=== PATIENT | female | born 1930 | race Caucasian/White ===

== ENCOUNTER 2016-12-29 09:00 | Inpatient (IN) | payer MEDICARE, OTHER ==
--- NOTE | 2017-04-07 01:04 | HP ---
HISTORY AND PHYSICAL: DATE OF SURGERY/ADMISSION: 04/13/17 DATE OF OFFICE VISIT: 04/02/17 ATTENDING SURGEON: Dr. Cherie Ybarra * (DICTATED BY CHRISTIAN DIETZ) PROCEDURE: Right total hip arthroplasty. CHIEF COMPLAINT: Right hip pain. HISTORY OF PRESENT ILLNESS: The patient is a very pleasant 86-year-old female with a longstanding history of right hip pain. She has tried conservative treatments such as medications, injections, and activity; however, has not had any benefit from these. She is currently using a cane for ambulation and has had a severe decline in her ADLs. She has elected to undergo a right total hip arthroplasty by Dr. Cherie Ybarra on 04/13/17. PAST MEDICAL HISTORY: 1. Hypertension. 2. Anxiety. 3. Depression. 4. 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 5. History of colon cancer 15 years ago, uterine cancer, status post ANDREY-BSO 15 years ago, and melanoma greater than 30 years ago. 6. Elevated cholesterol. PAST SURGICAL HISTORY: 1. Colon resection. 2. ANDREY-BSO. 3. Melanoma resection. MEDICATIONS: 1. Verapamil 250 mg 1 tablet by mouth in the morning. 2. Lorazepam 0.25 mg 1 tablet by mouth up to 3 times a day as needed for anxiety. 3. Zolpidem 10 mg p.o. daily. 4. Simvastatin 20 mg 1 tablet by mouth daily. 5. Fluoxetine HCl 20 mg 1 tablet by mouth daily. 6. Omeprazole 20 mg 1 tablet daily. ALLERGIES: 1. PENICILLIN, which causes a rash and hypertension. 2. CEPHALOSPORIN causing a rash. FAMILY MEDICAL HISTORY: Mother had low blood pressure, of lung disease. Father of emphysema. SOCIAL HISTORY: The patient lives alone with her dog, her son lives next door. She is , nonsmoker. REVIEW OF SYSTEMS: General: Negative for fevers, chills or night sweats. No history of weight gain or loss. No difficulty with anesthesia. HEENT: Negative for headaches, lightheadedness, dizziness, or syncopal episodes. Integumentary: Negative for abrasions, lesions, open wounds or sores. No difficulty with wound healing. Cardiothoracic: Negative for palpitations, murmurs or edema. Positive for hypertension. Pulmonary: Negative for shortness of breath, chronic cough, COPD or asthma. GI: Negative for nausea, vomiting, constipation or diarrhea. Positive for GERD. : Negative for nocturia, urinary frequency or urgency. No history of UTIs or kidney problems. Musculoskeletal: Positive for right hip pain. Positive for intermittent lower back pain. Neuro: Negative for paresthesias, numbness. No history of stroke or epilepsy or seizure. Endocrine: Negative for diabetes. Negative for thyroid disease. Hematologic: Negative for easy bruising, anemia. No history of DVTs or PEs. Infectious Disease: No history of MRSA, hepatitis C or HIV. Positive for yeast infection in groin creases. PHYSICAL EXAMINATION GENERAL: Well appearing, in no acute distress, alert and oriented. VITAL SIGNS: Height 60 inches, weight 133 pounds, blood pressure 108/72, respirations 20, temperature 97.2, BMI 26.0. HEENT: Normocephalic, atraumatic, EOMI. PULMONARY: Lungs are clear to auscultation bilaterally. No crackles, rhonchi or wheezes. CARDIAC: Regular rate and rhythm. No murmurs, gallops or rubs. No edema of bilateral lower extremities. ABDOMEN: Soft, nontender, nondistended. Negative CVA tenderness bilaterally. NEUROLOGIC: Alert and oriented x3. Cranial nerves are grossly intact. Sensation intact to light touch, bilateral lower extremities. MUSCULOSKELETAL: Antalgic gait favoring the right side, having to use a cane for mobility. Positive pain with internal log roll and external log roll. Posterior tibial pulses 2+ bilaterally. Negative John's sign bilaterally. Examination of groin creases show erythematous rash with multiple satellite lesions seen extending on the abdomen and upper thigh, rash appears in bilateral groin folds. RADIOGRAPHS: The patient will need to undergo x-rays of the right hip prior to surgery as she was unable to complete them today due to having to go to [facility] and having radiology behind schedule. IMPRESSION: The patient is a very pleasant 86-year-old female who presents today for history and physical examination prior to undergoing a right hip replacement. Due to the patient's recent skin infection, she is required to come back to see Dr. Ybarra prior to approval for surgery. She will continue with [facility] today and complete her blood work and chest x-ray as well as urinalysis. The patient was in agreement with this plan. She has been cleared by her primary care doctor; however, does have some questions with regards to her multiple caries; however, has not had any recent fevers, chills or dental pain, and does not have the income needed for dental work. We will follow back with her in approximately 1 week to evaluate her wounds prior to surgery. CHRISTIAN DIETZ [id number]/[facility] #: [id number] SAGAR
[2017-04-12] MEDS ORDERED: Buffered Lidocaine 0.9% SYRIN* 5 ML/SYR SYRINGE INTRADERM ONE (11:00)
[2017-04-13] MEDS ORDERED: Famotidine IV* 10 MG/ML 2 ML (20 mg) IV ONE (06:00)
[2017-04-13] MEDS ORDERED: Dexamethasone IV* 4 MG/ML 1 ML (4 MG) IV SLOW PU ONE (06:00)
[2017-04-13] MEDS ORDERED: Buffered Lidocaine 0.9% SYRIN* 5 ML/SYR SYRINGE ONE (06:47)
[2017-04-13] MEDS ORDERED: Famotidine IV* 10 MG/ML 2 ML (20 mg) ONE (06:47)
[2017-04-13] MEDS ORDERED: Dexamethasone IV* 4 MG/ML 1 ML (4 MG) ONE (06:47)
[2017-04-13] MEDS ORDERED: Clindamycin 900 MG IVPREMIX(* 900 MG/50 ML SDV IV ONE (06:47)
[2017-04-13] MEDS ORDERED: KETAMINE HCL* 50 MG/ML 10 ML VIAL ONE (07:51)
[2017-04-13] MEDS ORDERED: Midazolam* 1 MG/ML 5 ML VIAL (5 MG) ONE (07:52)
[2017-04-13] MEDS ORDERED: Morphine PF AMP (0.5MG/ML)* 5 MG/10 ML AMP ONE (07:52)
[2017-04-13] MEDS ORDERED: Bupivacaine 0.5% SDV PF* 30 ML VIAL ONE (07:52)
[2017-04-13] MEDS ORDERED: Propofol* 10 MG/ML 20 ML BTL IV PUSH ONE ×2 (07:52→10:19)
[2017-04-13] MEDS ORDERED: Phenylephrine INJ* 10 MG/ML 1 ML VIAL (10 MG) ONE (07:52)
[2017-04-13] MEDS ORDERED: Ondansetron INJ* 2 MG/ML VIAL ONE (07:52)
[2017-04-13] MEDS ORDERED: EPHEDrine (Pressors)* 50 MG/ML VIAL ONE (09:25)
[2017-04-13] MEDS ORDERED: Glycopyrrolate IV* 0.2 MG/ML 1 ML VIAL ONE (09:26)
[2017-04-13] MEDS ORDERED: Ondansetron INJ* 2 MG/ML VIAL IV PRN (09:35)
[2017-04-13] MEDS ORDERED: Naloxone* 0.4 MG/ML 1 ML VIAL IV PRN (09:35)
[2017-04-13] MEDS ORDERED: DiMENhydriNATE IV* 50 MG/ML VIAL IV PUSH PRN (09:35)
[2017-04-13] MEDS ORDERED: Nalbuphine* 20 MG/ML 1 ML VIAL IV PRN ×2 (09:35)
[2017-04-13] MEDS ORDERED: Magnesium Hydroxide LIQ* 30 ML UDC PO PRN (09:47)
[2017-04-13] MEDS ORDERED: diPHENhydraMINE IV* 50 MG/ML 1 ml VIAL (BENADRYL) IV PRN (09:47)
[2017-04-13] MEDS ORDERED: Bisacodyl SUPP* 10 MG SUPP PR PRN (09:47)
[2017-04-13] MEDS ORDERED: Polyethylene Glycol 3350* 17 GM PACKET PO PRN (09:47)
[2017-04-13] MEDS ORDERED: Acetaminophen TAB* 325 MG PO PRN (09:47)
[2017-04-13] MEDS ORDERED: Ropivacaine* 300 MG in NS 0.9% 250 ML* 240 ML EPIDURAL SCH (10:00)
[2017-04-13] MEDS ORDERED: Lidocaine 1%* 5 ML VIAL ONE (11:21)
--- NOTE | 2017-04-13 11:34 | RAD ---
HISTORY: Right hip arthroplasty COMPARISONS: March 14, 2016 VIEWS: 1, portable intraoperative view of the right hip at 9:56 AM FINDINGS: Single portable intraoperative view of the right hip arthroplasty demonstrate a right hip arthroplasty with a temporary femoral sizing component IMPRESSION: PORTABLE VIEW OF THE RIGHT HIP DURING RIGHT HIP ARTHROPLASTY
[2017-04-13] MEDS ORDERED: oxyCODONE/Acetamin 5/325 MG* TAB ONE (12:37)
[2017-04-13] MEDS: oxyCODONE/Acetamin 5/325 MG* TAB PO PRN ×2 (12:40→21:23)
--- NOTE | 2017-04-13 12:57 | RAD ---
HISTORY: Right hip replacement COMPARISONS: April 13, 2016 VIEWS: 3, Frontal view of the pelvis with frontal and crosstable lateral views of the right hip FINDINGS: BONE DENSITY: There is diffuse osteopenia. BONES: The patient is status post right hip arthroplasty. There is no hardware failure or osteolysis. JOINTS: The patient is status post right hip arthroplasty. There is advanced osteoarthritis of the left hip ALIGNMENT: There is no dislocation. SOFT TISSUES: There is post surgical change to the soft tissue OTHER FINDINGS: None. IMPRESSION: STATUS POST RIGHT HIP ARTHROPLASTY
[2017-04-13] MEDS: CMC:Simvastatin TAB(NF) 10 MG TAB PO SCH (16:50)
[2017-04-13] MEDS: Clindamycin 600 MG IVPREMIX(* 600 MG/50 ML SDV IV SCH (16:51)
[2017-04-13] MEDS ORDERED: Warfarin TAB(*) 6 MG PO ONE (17:00)
[2017-04-13] MEDS: Nystatin TOP POWDER* 15 GM BTL TOPICAL SCH ×2 (17:43→21:23)
[2017-04-13] MEDS: Docusate CAP* 100 MG PO SCH (21:23)
[2017-04-13] MEDS: Nystatin CREAM* 15 GM TUBE TOPICAL SCH (21:23)
[2017-04-13] MEDS: ALPRAZolam TAB* 0.25 MG PO SCH (21:28)
--- NOTE | 2017-04-13 21:30 | CONS ---
CC: Dr. Magalie Escobar; Dr. Ybarra * MEDICAL CONSULTATION REPORT: DATE OF CONSULTATION: PRIMARY CARE PROVIDER: Dr. Magalie Escobar. REQUESTING PROVIDER: Dr. Cherie Ybarra. CONSULTING PROVIDER: CHRISTIAN Alexander SUPERVISING PHYSICIAN: Dr. Dhaval Lane. (DICTATED BY CHRISTIAN ALEXANDER) REASON FOR CONSULT: Status post right total hip arthroplasty, request for medical comanagement. HISTORY OF PRESENT ILLNESS: This is an 86-year-old female with history of hypertension, hyperlipidemia, depression, and anxiety, and a remote history of colorectal cancer, status post colectomy, who underwent an elective right total hip arthroplasty with Dr. Ybarra earlier today. The hospitalist group has been asked to consult for medical comanagement. The patient was seen by her primary care provider on March 26 in preparation for this procedure. It was felt at that time that her chronic medical problems were stable. She was noted to have an inguinal yeast infection and treated with Diflucan and nystatin prior to surgery and the patient states that the rash has resolved to -1 small area of redness in the left inguinal area. The patient otherwise has no recent illness. She denies any recent complaints of chest pain or shortness of breath. Her exercise tolerance has been limited by her hip pain, but otherwise has no significant cardiopulmonary history. Postoperatively, the patient is doing quite well. She is alert and is not in any pain. She did have spinal anesthesia. She denies any nausea or vomiting and her appetite is beginning to return. She denies any chest pain, shortness of breath, or palpitations postoperatively. HOME MEDICATIONS: 1. Alprazolam 0.25 mg p.o. twice daily as needed for anxiety. 2. Prozac 20 mg p.o. daily. 3. Hydrocodone/acetaminophen 5/325 mg 1 tablet p.o. q.6 hours as needed for pain. 4. Omeprazole 20 mg p.o. daily. 5. Simvastatin 20 mg p.o. daily. 6. Verapamil 240 mg p.o. daily. 7. Ambien 10 mg p.o. at bedtime as needed for insomnia. PAST MEDICAL HISTORY: 1. Hypertension. 2. Anxiety and depression. 3. Hyperlipidemia. 4. History of colorectal cancer. PAST SURGICAL HISTORY: 1. Hysterectomy. 2. Colectomy. SOCIAL HISTORY: The patient is , lives alone, but her son and daughter- in- law lives next door. She has no significant smoking history and rare alcohol consumption. REVIEW OF SYSTEMS: As noted above in HPI, all other systems reviewed and considered negative. PHYSICAL EXAMINATION: General: This is a very pleasant, elderly female, who appears slightly younger than her stated age and is in no acute distress. Vitals: Temperature 98.1 degrees Fahrenheit, pulse 85 beats per minute, respiratory rate 20 per minute, oxygen saturation 92% on room air. Blood pressure 96/44 mmHg. HEENT: Head is normocephalic, atraumatic. Mucous membranes are pink and moist. The patient has poor dentition. Cardiovascular: Heart has a regular rate and rhythm without murmurs, rubs or gallops. Respiratory: Lungs are clear to auscultation without wheezes, crackles, or rhonchi. Abdomen: Soft and nontender to palpation. Extremities: No significant edema appreciated. Hip pillow in place. Psych: The patient is alert and appropriately oriented. LABORATORY DATA: Reviewed preoperative labs from 04/02/17 including a CBC, comprehensive metabolic panel and TSH. CBC is unremarkable with a preoperative hemoglobin of 12. Comprehensive metabolic panel is unremarkable with a preop creatinine of 0.77. TSH normal at 1.18. IMAGING: EKG shows a normal sinus rhythm. ASSESSMENT AND PLAN: This is a very pleasant 86-year-old female with hypertension, anxiety, depression, hyperlipidemia and remote history of colorectal cancer who underwent elective total hip arthroplasty with Dr. Ybarra earlier today. Hospitalist group consulted for medical comanagement. 1. Status post total hip arthroplasty - postoperative management including pain management, DVT prophylaxis, and discharge planning per Orthopedic Surgery. 2. Hypertension - the patient is slightly hypotensive postoperatively. We will plan to continue her verapamil tomorrow if blood pressure improves throughout the afternoon and evening hours. 3. Hypertension. Plan to continue her statin. 4. Anxiety and depression - this appears to be stable. We will plan to continue her home SSRI and p.r.n. benzo. 5. Inguinal yeast infection - she was recently treated with Diflucan and nystatin. There was one area of rash still present in the left inguinal area and we will plan to continue nystatin cream during her hospital stay. 6. Code status. The patient is full code. 7. Healthcare proxy is her son. 8. DVT prophylaxis per Orthopedic Surgery. DISPOSITION: Hospitalist group will follow along during this patient's postoperative stay. Discharge planning per Orthopedic Surgery. CHRISTIAN ALEXANDER [id number]/[facility] #: [id number] MTDD
[2017-04-14] MEDS: Clindamycin 600 MG IVPREMIX(* 600 MG/50 ML SDV IV SCH ×2 (00:23→07:30)
--- NOTE | 2017-04-14 04:51 | OP ---
OPERATIVE REPORT: DATE OF OPERATION: 04/13/17 DATE OF : 34 ATTENDING SURGEON: Cherie Ybarra MD VICE PRESIDENT UNDERWRITING: CHRISTIAN Cevallos Ms. Oleary did help throughout the procedure with preparation of the leg, wound retraction, manipul ation of the hip, and wound closure. ANESTHESIOLOGIST: Dr. Landin. ANESTHESIA: Spinal. PRE-OP DIAGNOSIS: Severe end-stage degenerative osteoarthritis of the right hip joint. POST-OP DIAGNOSIS: Severe end-stage degenerative osteoarthritis of the right hip joint. OPERATIVE PROCEDURE: Right total hip arthroplasty. HARDWARE USED: This is [place] uncemented total hip hardware. For the cup, a Trident hemispherical acetabular shell 52E, a single 20-mm and a single 16-mm cancellous bone screw, diameter 6.5. For t he stem, an Accolade TMZF size 3, 127- degree neck. For the insert, A Trident X3, 0-degree polyethy mariia liner with 40E. For the head, an LFIT V40 femoral head 40, -4. ESTIMATED BLOOD LOSS: 300 cc. SPECIMENS: Bone and acetabular reamings sent to Pathology. COMPLICATIONS: None. BRIEF HISTORY/INDICATIONS: Ms. Gleason is an 86-year-old female with severe right hip pain over the y ears. She failed conservative treatment with anti- inflammatories, pain medications, physical thera py, and use of a rolling walker. The patient has had increasingly severe pain making it difficult to ambulate without severe pain. Radiographs showed severe end-stage arthritis with bone-on- bone con tact. Due to this decreased quality of life, the patient elected to undergo right total hip arthrop lasty. Informed consent was obtained from the patient. She understood the risks of the surgery included bu t were not limited to bleeding, infection, damage to nearby structures, continued pain, need for fur ther surgery, intraoperative fracture, nerve palsy, hardware failure or loosening, dislocation, leg length discrepancy, stroke, heart attack, blood clot, and . She wished to proceed. INTRAOPERATIVE FINDINGS: Intraoperatively, the patient was noted to have full- thickness loss of ca rtilage along the acetabulum and femoral head. DESCRIPTION OF PROCEDURE: Ms. Gleason was identified in the preanesthesia unit. Her right lower extr emity was marked as the correct operative side. Informed consent was signed and placed in the chart . The patient was taken to the operating room and placed under spinal anesthesia. A Patton catheter was placed. The patient was placed in the left lateral decubitus position on the peg board and all bony prominences were well padded. Right lower extremity was prepped and draped in the usual steri le fashion. Appropriate perioperative antibiotics were given within 1 hour of incision. A 14-cm posterior hip incision was made with a 10-blade. Electrocautery was used to dissect down to the lateral fascial layer. New, 10-blade was used to make a lateral fascial incision. Charnley re tractor was placed and the posterior aspect of the hip joint was visualized. Piriformis and conjoin t tendons were elevated off the posterolateral femur using electrocautery. These were tagged with # 5 Ethibonds. Next, electrocautery was used to make a standard posterolateral capsular flap. This w as also tagged with #5 Ethibonds. The hip was carefully dislocated. Lesser troch to the center of the femoral head measured 48 mm. O scillating saw was used to make the appropriate femoral head cut. There was extensive loss of cartil age and a significant amount of osteophytes around the femoral neck. Femoral head was carefully rem dorita and sent to pathology. The femur was carefully retracted anteriorly. After appropriate placement of retractor, the acetabu lum was easily visualized. Long-handled knife was used to sharply remove any remaining labrum from the acetabular rim. The acetabulum was sequentially reamed to up to a size 51. A bleeding subchond ral bone bed was obtained. 51 trial was impacted into the acetabulum and noted to have good stabili ty as well as appropriate anteversion and abduction angle. 52E Trident hemispherical acetabular shell was chosen as the final implant. This was impacted into the acetabulum without difficulty. The cup was noted to be stable with appropriate anteversion and abduction angle. A single 16 mm and a single 20 mm 6.5 cancellous bone screw was placed in the supe roposterior quadrant for extra stability. Osteophytes were removed from around the anterior and inf erior acetabulum to avoid impingement with range of motion. Insert chosen was a Trident X3 0-degree polyethylene insert 40E. This was impacted into the acetabulum without difficulty. Stability of t he insert was checked and rechecked and noted to be stable. Attention was next turned to preparation of the femur. A canal finder was used to enter the proxima l femur. The proximal femur was sequentially broached up to a size 3. Size 3 broach had good fit a nd stability as well as appropriate anteversion. A trial 127-degree neck was placed. A trial 40, - 4 head was placed. Lesser troch to the center of the femoral head measured approximately 48 mm. The hip was reduced and taken through a range of motion. The hip was stable in all positions. Appropr iate soft tissue tension and leg length. The hip was carefully dislocated. All trials were carefully removed. Final implant chosen was an A ccolade TMZF size 3 with a 127-degree neck. A 40, -4 LFIT anatomic V40 femoral head was chosen. Th is was impacted on to the femoral neck without difficulty. The hip was reduced and taken through a range of motion. The hip was stable in all positions. The hip was copiously irrigated with sterile saline. The previously tagged capsule and tendons were reapproximated to the posterolateral femur through 2 trochanteric drill holes. Lateral fascial lay er was closed using interrupted #1 Vicryls. The rest of the incision was closed in a layered fashio n using 0 and 2-0 Vicryls. The skin was closed using running 3-0 Monocryl and Dermabond. Sterile A daptic, 4x4s, and paper tape were used to cover the incision. The patient's anesthesia was reversed without difficulty. She was taken to the PACU in stable condi tion. Intended weightbearing will be weightbearing as tolerated. Intended DVT prophylaxis will be Coumadin with a Lovenox bridge. [id number]/[facility] #: [id number]
[2017-04-14] MEDS: oxyCODONE/Acetamin 5/325 MG* TAB PO PRN ×3 (05:18→16:01)
[2017-04-14 05:46] LABS: Hematocrit 25 % (35-47); Hemoglobin 8.2 g/dl (12.0-16.0)
[2017-04-14] MEDS ORDERED: oxyCODONE/Acetamin 5/325 MG* TAB PO PRN (06:00)
[2017-04-14] MEDS ORDERED: Ondansetron TAB* 4 MG PO PRN (06:00)
[2017-04-14] MEDS ORDERED: oxyCODONE TAB* 5 MG TAB PO PRN (06:00)
[2017-04-14] MEDS ORDERED: Morphine INJ* 2 MG/ML 1 ML CARPUJECT IV PRN (06:00)
[2017-04-14 06:02] LABS: BUN/Creatinine Ratio 17.3 (8-20); Calcium 7.9 mg/dL (8.6-10.3); EGFR African American 94.7 (>60); EGFR Non-African American 73.6 (>60); Potassium 4.1 mmol/L (3.5-5.0)
[2017-04-14] MEDS: Omeprazole CAP* 20 MG PO SCH (07:53)
[2017-04-14] MEDS ORDERED: Sertraline* 25 MG TAB PO SCH (09:00)
[2017-04-14] MEDS ORDERED: Verapamil SR TAB* 240 MG PO SCH (09:00)
[2017-04-14] MEDS: Docusate CAP* 100 MG PO SCH ×2 (09:42→20:18)
[2017-04-14] MEDS: ALPRAZolam TAB* 0.25 MG PO SCH ×2 (09:42→20:19)
[2017-04-14] MEDS: Nystatin CREAM* 15 GM TUBE TOPICAL SCH ×2 (09:43→20:19)
[2017-04-14] MEDS: FLUoxetine CAP* 20 MG PO SCH (09:43)
[2017-04-14] MEDS: Sertraline* 25 MG TAB PO SCH (09:45)
[2017-04-14] MEDS: Nystatin TOP POWDER* 15 GM BTL TOPICAL SCH ×4 (09:45→20:28)
[2017-04-14] MEDS ORDERED: Enoxaparin(*) 30 MG/0.3 ML SYR SUBCUT SCH (10:00)
--- NOTE | 2017-04-14 10:35 | PN ---
Progress Note - Progress Note Date of Service: 04/14/17 SOAP: Subjective: []Patient seen OOB in chair. She feels well, mild "fogginess" from pain meds but denies lightheadedness. Denies SOB, CP. Objective: [] Vital Signs Temp 97.2 F 04/14/17 08:00 Pulse 65 04/14/17 08:00 Resp 18 04/14/17 09:42 BP 114/48 04/14/17 08:00 Pulse Ox 99 04/14/17 08:00 Intake & Output 04/13/17 04/14/17 04/14/17 18:59 06:59 18:59 Intake Total 2290 2475 350 Output Total 680 850 Balance 1610 1625 350 Intake: IV Fluids 2049 1674 CLINDAMYCIN 900 MG 50 LR 2000 5 Oral 240 800 350 Output: Patton 650 850 Residual 30 Patton 16 Fr 30 Other: # Bowel Movements 0 Estimated Blood Loss 100 Comment Right hip dressing is dry and intact calf NT and soft +DF/PF right ankle sensation intact distally Assessment: []s/p Right total hip arthroplasty POD #1 Plan: []PT/OT WBAT RLE Mild anemia, will monitor Coumadin with Lovenox bridge- 6 mg today Home with VNS 1-2 days Will be discharged on Clinda 300 mg po TID due to poor dentition
[2017-04-14 15:30] LABS: Hematocrit 25 % (35-47); Hemoglobin 8.3 g/dl (12.0-16.0)
[2017-04-14] MEDS: Clindamycin CAP* 150 MG PO SCH ×2 (15:33→20:18)
--- NOTE | 2017-04-14 15:46 | PN ---
Subjective Date of Service: 04/14/17 Interval History: Patient is POD #1 s/p MICHAEL. She reports feeling a little "woozy" today. Pain is adequately controlled. No n/v. No abd pain, n/v, but appetite is poor. Objective Active Medications: Acetaminophen (Tylenol Tab*) 650 mg PO Q4H PRN PRN Reason: PAIN OR TEMPERATURE Alprazolam (Xanax Tab*) 0.25 mg PO BID [facility] Last Admin: 04/14/17 09:42 Dose: 0.25 mg Bisacodyl (Dulcolax Supp*) 10 mg TN DAILY PRN PRN Reason: constipation Clindamycin HCl (Cleocin Cap*) 300 mg PO TID [facility] Last Admin: 04/14/17 15:33 Dose: 300 mg Diphenhydramine HCl (Benadryl Iv*) 12.5 mg IV Q6H PRN PRN Reason: PRURITIS Docusate Sodium (Colace Cap*) 100 mg PO BID [facility] Last Admin: 04/14/17 09:42 Dose: 100 mg Enoxaparin Sodium (Lovenox(*)) 30 mg SUBCUT Q24H [facility] Last Admin: 04/14/17 09:50 Dose: 30 mg Fluoxetine HCl (Prozac Cap*) 20 mg PO QAM [facility] Last Admin: 04/14/17 09:43 Dose: 20 mg Lactated Ringer's (Lactated Ringers 1000 Ml Bag*) 1,000 mls @ 2,000 mls/hr IV ONCE PRN PRN Reason: FOR SBP < 90 Lactated Ringer's (Lactated Ringers 1000 Ml Bag*) 1,000 mls @ 100 mls/hr IV PER RATE [facility] Lactulose (Lactulose*) 30 ml PO Q6H PRN PRN Reason: constipation Magnesium Hydroxide (Milk Of Magnesia Liq*) 30 ml PO Q6H PRN PRN Reason: constipation Morphine Sulfate (Morphine Inj (Syringe)*) 2 mg IV Q2H PRN PRN Reason: PAIN Nystatin (Nystatin Top Powder*) 1 applic TOPICAL TID [facility] Last Admin: 04/14/17 15:34 Dose: 1 applic Nystatin (Nystatin Cream*) 1 applic TOPICAL BID [facility] Last Admin: 04/14/17 09:43 Dose: 1 applic Omeprazole (Prilosec Cap*) 20 mg PO DAILY@0730 [facility] Last Admin: 04/14/17 07:53 Dose: 20 mg Ondansetron HCl (Zofran Tab*) 4 mg PO Q6H PRN PRN Reason: NAUSEA Oxycodone HCl (Roxycodone Tab*) 10 mg PO Q4H PRN PRN Reason: SEVERE PAIN Oxycodone/Acetaminophen (Percocet 5/325 Tab*) 1 tab PO Q3H PRN PRN Reason: PAIN - MODERATE Oxycodone/Acetaminophen (Percocet 5/325 Tab*) 2 tab PO Q3H PRN PRN Reason: PAIN - MODERATE Last Admin: 04/14/17 12:00 Dose: 2 tab Polyethylene Glycol/Electrolytes (Miralax*) 17 gm PO DAILY PRN PRN Reason: Constipation Sertraline HCl (Zoloft*) 25 mg PO QAM [facility] Last Admin: 04/14/17 09:45 Dose: 25 mg Simvastatin (Zocor(Nf)) 10 mg PO 1700 [facility] Last Admin: 04/13/17 16:50 Dose: 10 mg Warfarin Sodium (Coumadin Tab(*)) 6 mg PO ONCE@1700 ONE PRN Reason: Protocol Stop: 04/14/17 17:01 Vital Signs: Temp Pulse Resp BP Pulse Ox 97.2 F 65 14 114/48 99 04/14/17 08:00 04/14/17 08:00 04/14/17 12:00 04/14/17 08:00 04/14/17 08:00 Oxygen Devices in Use Now: None Appearance: Well appearing elderly female who appears younger than stated age in NAD Respiratory: Symmetrical Chest Expansion and Respiratory Effort, Clear to Auscultation Cardiovascular: NL Sounds; No Murmurs; No JVD, RRR Abdominal: NL Sounds; No Tenderness; No Distention Extremities: No Edema Neurological: Alert and Oriented x 3 Result Diagrams: 04/14/17 15:15 04/14/17 05:13 Assess/Plan/Problems-Billing Assessment: This is an 86 yo female with HTN, anxiety/depression, HLD and remote h/o CRC s/ p R MICHAEL with Dr Ybarra. Hospitalist group following for medical co-management. - Patient Problems (1) Status post total hip replacement, right Comment: POD #1 Post-op management per ortho (2) Blood loss anemia Comment: Hgb 8.2 g/dl with mild symptoms Repeat H&H ordered for this afternoon Would recommend transfusion for Hgb <8 if symptoms persist (3) Hypertension Comment: Mildly hypotensive with anemia Verapamil held this am, re-eval to resume tomorrow (4) Anxiety Comment: Stable, cont home meds (5) Hyperlipidemia Comment: Cont statin (6) Full code status (7) DVT prophylaxis Comment: Lovenox/Coumadin per ortho Status and Disposition: Dispo per ortho. Patient initially thought she could go home post-op, now interested in PMRU or MAI
[2017-04-14] MEDS ORDERED: Warfarin TAB(*) 6 MG PO ONE (17:00)
[2017-04-14] MEDS: CMC:Simvastatin TAB(NF) 10 MG TAB PO SCH (17:34)
[2017-04-15] MEDS: oxyCODONE/Acetamin 5/325 MG* TAB PO PRN ×3 (00:10→11:52)
[2017-04-15 06:05] LABS: Hematocrit 23 % (35-47); Hemoglobin 7.9 g/dl (12.0-16.0)
[2017-04-15] MEDS: Clindamycin CAP* 150 MG PO SCH (08:27)
[2017-04-15] MEDS: FLUoxetine CAP* 20 MG PO SCH (08:27)
[2017-04-15] MEDS: Omeprazole CAP* 20 MG PO SCH (08:27)
[2017-04-15] MEDS: Sertraline* 25 MG TAB PO SCH (08:27)
[2017-04-15] MEDS: Docusate CAP* 100 MG PO SCH (08:27)
[2017-04-15] MEDS: ALPRAZolam TAB* 0.25 MG PO SCH (08:28)
--- NOTE | 2017-04-15 09:53 | PN ---
Progress Note - Progress Note Date of Service: 04/15/17 SOAP: Subjective: []Patient seen OOB in chair, receiving a blood transfusion. Her hip pain is improving. [place] dizzy this am but currently feels fine sitting in her chair. Awaiting bed offer for rehab. Objective: [] Vital Signs Temp 98.9 F 04/15/17 07:17 Pulse 74 04/15/17 07:17 Resp 18 04/15/17 08:28 BP 100/43 04/15/17 07:17 Pulse Ox 97 04/15/17 07:17 Intake & Output 04/14/17 04/15/17 04/15/17 18:59 06:59 18:59 Intake Total 1828 1710 Output Total 500 1050 Balance 1328 660 Intake: IV Fluids 1178 1210 LR 1178 1210 Oral 650 500 Output: Patton 500 1050 Laboratory Results - last 24 hr 04/14/17 04/15/17 04/15/17 15:15 05:42 05:42 Hgb 8.3 L 7.9 L Hct 25 L 23 L INR (Anticoag Therapy) 3.52 H Blood Type Antibody Screen Crossmatch 04/15/17 05:42 Hgb Hct INR (Anticoag Therapy) Blood Type O Positive Antibody Screen Negative Crossmatch See Detail Right hip dressing changed this am by Dr. Ybarra calf NT and soft +DF/PF right ankle sensation and circulation intact distally Assessment: []s/p Right total hip arthroplasty POD #2 Acute post operative anemia secondary to blood loss Plan: []PT/OT this afternoon WBAT RLE Await bed offer for rehab, likely discharge Monday 04/16. hold Coumadin today
[2017-04-15] MEDS: Nystatin CREAM* 15 GM TUBE TOPICAL SCH (11:32)
[2017-04-15] MEDS: Nystatin TOP POWDER* 15 GM BTL TOPICAL SCH (11:33)
[2017-04-15 11:35] VITALS: BP 143/66
--- NOTE | 2017-04-15 13:51 | PN ---
Subjective Date of Service: 04/15/17 Interval History: Patient was discharged to [facility] earlier today. Reviewed am labs, vitals and nursing notes. Patient received 2U PRBCs as Hgb dropped to 7.9 g/dl this am. No additional concerns noted Objective Active Medications: Home Medications Medication Instructions Recorded Confirmed Type Alprazolam 0.25 mg PO BID 04/02/17 04/15/17 History FLUoxetine CAP* [PROzac CAP*] 20 mg PO QAM 04/02/17 04/15/17 History HYDROcodone/ACETAMIN 5-325 MG* 1 tab PO Q6H PRN 04/02/17 04/15/17 History [[place] 5-325 TAB*] Simvastatin TAB(NF) [Zocor(NF)] 20 mg PO 1700 04/02/17 04/15/17 History Verapamil HCl [Verelan] 240 mg PO QAM 04/02/17 04/15/17 History Omeprazole [Prilosec] 20 mg PO DAILY 04/13/17 04/15/17 History Zolpidem TAB* [Ambien TAB*] 10 mg PO BEDTIME PRN 04/13/17 04/15/17 History Vital Signs: Temp Pulse Resp BP Pulse Ox 97.2 F 83 18 143/66 94 04/15/17 11:26 04/15/17 11:26 04/15/17 11:52 04/15/17 11:26 04/15/17 11:26 Appearance: Exam not completed Result Diagrams: 04/15/17 05:42 04/14/17 05:13 Assess/Plan/Problems-Billing Assessment: This is an 86 yo female with HTN, anxiety/depression, HLD and remote h/o CRC s/ p R MICHAEL with Dr Ybarra. Hospitalist group following for medical co-management. - Patient Problems (1) Status post total hip replacement, right Comment: POD #2 Post-op management per ortho D/c today to [facility] (2) Blood loss anemia Comment: Hgb dropped to 7.9 g/dl Transfused 2U PRBCs (3) Hypertension Comment: Now normotensive and receiving blood May resume verapamil (4) Anxiety Comment: Stable, cont home meds (5) Hyperlipidemia Comment: Cont statin (6) Full code status (7) DVT prophylaxis Comment: Coumadin per ortho Status and Disposition: Discharge per ortho. Resume all home medications. Cont to monitor INR.
--- NOTE | 2017-04-16 22:43 | DS ---
DISCHARGE SUMMARY: DATE OF ADMISSION: 04/13/17 DATE OF DISCHARGE: 04/15/17 ATTENDING PHYSICIAN: Dr. Cherie Ybarra * (DICTATED BY CHRISTIAN OROZCO) ADMISSION DIAGNOSIS: Severe end-stage degenerative osteoarthritis of the right hip. DISCHARGE DIAGNOSES: 1. Severe end-stage degenerative osteoarthritis of the right hip. 2. Acute postoperative anemia secondary to blood loss. SURGERY PERFORMED: Right total hip arthroplasty. HOSPITAL COURSE: The patient is an 86-year-old female with severe right hip pain over the last several years. She failed conservative management with anti - inflammatories, pain medications, physical therapy, and use of a rolling walker. The patient elected to proceed with the aforementioned procedure and was taken to the operating room under the care of Dr. Cherie Ybarra on the date of 04/13/17. She tolerated the procedure well and left the operating room in stable condition. Postoperatively on day 2, her hemoglobin was 7.9 and hematocrit 23. It was felt that she would benefit from a transfusion and was given 2 units of packed red blood cells as she was symptomatic with these lab results. She was transfused without difficulty. She was found to be an acceptable candidate for the rehabilitation unit here at [facility] was transferred to the floor on the afternoon of 04/13/17 in stable condition. CONDITION ON DISCHARGE: Reveals a temperature of 98.3, pulse 85, respiratory rate 18, O2 sats 94% on room air, and blood pressure 144/61. Her right hip incision was healing without evidence of infection. Her calf was soft and nontender. Her neurovascular status is grossly intact. PLAN: Discharge to [facility] Rehabilitation 04/15/17. She will continue to bear weight as tolerated on the right lower extremity. It is recommended that she remain on oral clindamycin 300 mg t.i.d. for an additional 7 days due to her poor dentition. She will continue with Coumadin for DVT prophylaxis, dosed appropriately based on her INR which was elevated on the postoperative day #2 at 3.52; therefore, no Coumadin was given on the date of her discharge to the rehab unit. She is scheduled to follow up with Dr. Ybarra in roughly 10 to 14 days in the office. If there are any changes in her orthopedic condition, we will be contacted. CHRISTIAN OROZCO [id number]/[facility] #: [id number] SAGAR
== END 2017-04-15 13:01 | DRG 470 ==
LOC: AA 04-13 06:35 → SSU 04-13 13:24
PROVIDERS: ADMIT Orthopaedic Surgery Adult Reconstructive Orthopaedic Surgery; ATTEND Orthopaedic Surgery Adult Reconstructive Orthopaedic Surgery
PROC: 0SR904A Replacement of Right Hip Joint with Ceramic on Polyethylene Synthetic Substitute, Uncemented, Open Approach (ICD-10-PCS; 2017-04-13)
PROC: 30233N1 Transfusion of Nonautologous Red Blood Cells into Peripheral Vein, Percutaneous Approach (ICD-10-PCS; principal; 2017-04-15)
DX: M16.11 Unilateral primary osteoarthritis, right hip (principal); B37.89 Other sites of candidiasis; D62 Acute posthemorrhagic anemia; M17.11 Unilateral primary osteoarthritis, right knee; I10 Essential (primary) hypertension; E78.5 Hyperlipidemia, unspecified; F41.9 Anxiety disorder, unspecified; F32.9 Major depressive disorder, single episode, unspecified; Z85.038 Personal history of other malignant neoplasm of large intestine; Z85.42 Personal history of malignant neoplasm of other parts of uterus; Z88.0 Allergy status to penicillin; Z88.1 Allergy status to other antibiotic agents; Z83.6 Family history of other diseases of the respiratory system
CPT/HCPCS: 36415; 62327; 80048; 85014; 85018; 85610; 86850; 86900; 86901; 86922; 88304; 88311; 94760; A9270-GY; C1713; C1776; J1100; J1650; J2250; J2405; J2704; J2795; P9040

== ENCOUNTER 2017-04-15 10:46 | Inpatient (IN) | payer MEDICARE, OTHER ==
[2017-04-15] MEDS ORDERED: Acetaminophen TAB* 325 MG PO PRN (14:12)
[2017-04-15] MEDS ORDERED: Magnesium Hydroxide LIQ* 30 ML UDC PO PRN (14:12)
[2017-04-15] MEDS ORDERED: Al Hydrox/Mg Hydrox/Simet LIQ* 30 ML UDC PO PRN (14:12)
[2017-04-15] MEDS ORDERED: Bisacodyl SUPP* 10 MG SUPP PR PRN (14:12)
[2017-04-15] MEDS ORDERED: Senna TAB PO PRN (14:12)
[2017-04-15] MEDS ORDERED: ALPRAZolam TAB* 0.25 MG PO PRN (14:19)
[2017-04-15] MEDS ORDERED: oxyCODONE/Acetamin 5/325 MG* TAB PO PRN (14:22)
[2017-04-15] MEDS: oxyCODONE/Acetamin 5/325 MG* TAB PO PRN ×2 (16:20→21:09)
--- NOTE | 2017-04-15 16:49 | HP ---
REHABILITATION ADMISSION: DATE OF ADMISSION: 04/15/17 PRIMARY CARE PROVIDER: Dr. Escobar. ORTHOPEDIC SURGEON: Dr. Ybarra. REASON FOR ADMISSION: Right total hip replacement, complicated by acute postoperative anemia. HISTORY OF PRESENT ILLNESS: This is an 86-year-old woman with a longstanding osteoarthritis and was admitted on 04/13/17 for elective right total hip replacement with Dr. Ybarra. Postoperatively, she was put on weightbearing as tolerated precautions to the right lower extremity as well as total hip precautions. She was started on Lovenox for DVT prophylaxis bridging to Coumadin. She was noted to have acute postoperative anemia with her hemoglobin being 8.3 and hematocrit 25 on 04/14/17. This morning, her hemoglobin was down to 7.9 with hematocrit of 23. Her INR was supratherapeutic at 3.52 after 2 doses of Coumadin of 6 mg the 2 prior days. Lovenox was stopped, although she did get a dose this morning and she was given 2 units of packed red blood cells. She did have some dizziness this morning. Initially postoperatively, she was noted to have some mild hypotension and her verapamil was held. It has not been restarted yet. She denies any chest pain, shortness of breath, or abdominal pain. No nausea or vomiting. Her catheter was removed and she has been urinating. She has not had a bowel movement yet. Prior to admission, she was independent with ADLs. She was ambulating using a single-point cane or sometimes a rolling walker. With occupational therapy here, she has required max amount of assistance for lower body dressing, mild assist for bathing, and a moderate amount of assistance for toileting. With physical therapy, she has required contact guard assistance for transferring and was able to ambulate up to 6 feet using a rolling walker. PAST MEDICAL HISTORY: Includes: 1. Hypertension. 2. Anxiety. 3. Depression. 4. Hyperlipidemia. 5. Osteoarthritis, see history of present illness. 6. Status post colon cancer 15 years ago, status post resection. 7. History of uterine cancer, status post total abdominal hysterectomy and bilateral salpingo-oophorectomy. 8. History of melanoma 30 years ago, status post resection. MEDICATIONS: 1. On hold is verapamil 240 mg q. day. 2. Xanax 0.25 mg t.i.d. p.r.n. anxiety. 3. Simvastatin 20 mg q. day. 4. Fluoxetine 20 mg q. day. 5. Omeprazole 20 mg q. day. 6. Tylenol p.r.n. 7. Dulcolax p.r.n. 8. Colace 100 mg b.i.d. 9. Coumadin currently on hold. 10. Nystatin powder. 11. Percocet p.r.n. ALLERGIES: PENICILLIN and CEPHALOSPORINS. FAMILY HISTORY: Mother had lung disease, father COPD. SOCIAL HISTORY: She is and lives alone with her dog, but her son and his family are next door. No smoking. Her home is 1 level and there are 2 steps to enter. She plans to use Meals on Wheels at discharge. If she cannot make decisions for herself, her son, Nupur Gleason, is her healthcare proxy and his phone number is [phone]. REVIEW OF SYSTEMS: See history of present illness and past medical history. The remainder of the 13-system review was completed. No other significant findings. PHYSICAL EXAMINATION GENERAL: Well-developed, well-nourished. Appearing stated age. VITAL SIGNS: Temperature 98.3, heart rate 77, respirations 18, oxygenation 92% on room air, blood pressure is 134/46. HEENT: Normocephalic, atraumatic. Oropharynx is clear, but she is edentulous and has lost pretty much all of her teeth. LUNGS: Clear to auscultation bilaterally. HEART: Regular rate and rhythm. ABDOMEN: Active bowel sounds, soft, nontender, nondistended. EXTREMITIES: No clubbing, cyanosis, or edema. MUSCULOSKELETAL: She has functional range of motion of all of her major joints with limited testing of her right hip and knee secondary to her surgery. NEUROLOGIC : She has intact sensation in all 4 extremities. Motor strength is 5/5 bilateral upper and lower extremities with limited testing of the right hip and knee due to the pain. MENTAL STATUS: Alert and oriented x3. LABORATORY DATA: Today her INR is 3.52. Hemoglobin 7.9, hematocrit 23. IMPRESSION: An 86-year-old woman status post right total hip replacement, complicated by acute postoperative anemia and hypotension. She will be admitted to [facility] so can return to living independently. PLAN: 1. Total hip replacement. Continue with hip precautions and weightbearing as tolerated. She will have followup with Dr. Ybarra. Her dressing will be changed as per routine. 2. Acute postoperative anemia. Follow up labs. She is status post 2 units packed red blood cell transfusion today already. 3. DVT prophylaxis is intended to be Coumadin which is currently on hold due to a supratherapeutic INR today. Her INR will be checked daily and Coumadin restarted when it is starting to trend downward. 4. Hypertension with episode of hypotension during the stay. She is currently normotensive. Her verapamil has not been restarted yet. We will monitor her for this to determine when it can be restarted. 5. History of yeast infection. Continue with nystatin. 6. Impaired mobility. She will be seen by Physical Therapy for bed mobility, transfer, gait, and stair training using a rolling walker. 7. Impaired self-care. She will be seen by Occupational Therapy for ADL training and IADL training and equipment evaluation. 8. Advance directives. She has a living will, but requests to not be resuscitated. The MOLST was completed with 2 witnesses. If she cannot make decisions for herself, her son, Nupur Gleason, is her healthcare proxy. Phone number is [phone]. 9. Estimated length of stay is 7 to 10 days. [id number]/[facility] #: [id number] SAGAR
[2017-04-15] MEDS: Atorvastatin* 10 MG TAB PO SCH (18:02)
[2017-04-15] MEDS: Nystatin TOP POWDER* 15 GM BTL TOPICAL SCH (21:04)
[2017-04-15] MEDS: Docusate CAP* 100 MG PO SCH (21:04)
[2017-04-15] MEDS: Nystatin CREAM* 15 GM TUBE TOPICAL SCH (21:05)
[2017-04-16] MEDS: oxyCODONE/Acetamin 5/325 MG* TAB PO PRN ×5 (05:08→23:42)
[2017-04-16] MEDS: Omeprazole CAP* 20 MG PO SCH (05:09)
[2017-04-16 06:02] LABS: Hematocrit 32 % (35-47); Hemoglobin 10.7 g/dl (12.0-16.0); Mean Corpuscular HGB Conc 34 g/dl (31-36); Mean Corpuscular Hemoglobin 28 pg (27-31); Mean Corpuscular Volume 84 fL (80-97); Mean Platelet Volume 7 um3 (7.4-10.4); Red Blood Count 3.77 10^6/ul (4.0-5.4); Red Cell Distribution Width 14 % (10.5-15); White Blood Count 9.5 10^3/ul (3.5-10.8)
[2017-04-16 06:18] LABS: Albumin 2.7 g/dL (3.2-5.2); BUN/Creatinine Ratio 18.2 (8-20); Calcium 7.8 mg/dL (8.6-10.3); EGFR African American 135.4 (>60); EGFR Non-African American 105.3 (>60); Globulin 2.4 g/dL (2-4); Potassium 3.8 mmol/L (3.5-5.0); Total Bilirubin 0.8 mg/dL (0.2-1.0); Total Protein 5.1 g/dL (6.4-8.9)
[2017-04-16] MEDS: Polyethylene Glycol 3350* 17 GM PACKET PO PRN (09:22)
[2017-04-16] MEDS: FLUoxetine CAP* 20 MG PO SCH (09:23)
[2017-04-16] MEDS: Docusate CAP* 100 MG PO SCH ×2 (09:23→21:36)
[2017-04-16] MEDS: Nystatin CREAM* 15 GM TUBE TOPICAL SCH ×2 (09:25→13:18)
[2017-04-16] MEDS: Nystatin TOP POWDER* 15 GM BTL TOPICAL SCH ×2 (09:26→13:18)
--- NOTE | 2017-04-16 10:25 | PN ---
Progress Note - Progress Note Date of Service: 04/16/17 Note: Patient visited. Nursing notes reviewed. Initial therapy evals are in progress. She slept well last night but was noted to have some confusion early this morning and was reoriented. She denies chest pain, shortness of breath or abdominal pain. Pain is well-controlled. Acetaminophen (Tylenol Tab*) 650 mg PO Q4H PRN PRN Reason: FEVER > 101 Al Hydrox/Mg Hydrox/Simethicone (Maalox Plus*) 30 ml PO Q6H PRN PRN Reason: INDIGESTION Alprazolam (Xanax Tab*) 0.25 mg PO TID PRN PRN Reason: ANXIETY Atorvastatin Calcium (Lipitor*) 10 mg PO QPM [facility] Last Admin: 04/15/17 18:02 Dose: 10 mg Bisacodyl (Dulcolax Supp*) 10 mg MS DAILY PRN PRN Reason: CONSTIPATION Docusate Sodium (Colace Cap*) 100 mg PO BID [facility] Last Admin: 04/16/17 09:23 Dose: 100 mg Fluoxetine HCl (Prozac Cap*) 20 mg PO DAILY [facility] Last Admin: 04/16/17 09:23 Dose: 20 mg Magnesium Hydroxide (Milk Of Magnstefani Liq*) 30 ml PO Q6H PRN PRN Reason: CONSTIPATION Nystatin (Nystatin Cream*) 1 applic TOPICAL BID [facility] Last Admin: 04/16/17 09:25 Dose: 1 applic Nystatin (Nystatin Top Powder*) 1 applic TOPICAL TID [facility] Last Admin: 04/16/17 09:26 Dose: 1 applic Omeprazole (Prilosec Cap*) 20 mg PO DAILY@0600 [facility] Last Admin: 04/16/17 05:09 Dose: 20 mg Oxycodone/Acetaminophen (Percocet 5/325 Tab*) 1 tab PO Q4H PRN PRN Reason: PAIN Oxycodone/Acetaminophen (Percocet 5/325 Tab*) 2 tab PO Q4H PRN PRN Reason: PAIN Last Admin: 04/16/17 09:23 Dose: 2 tab Polyethylene Glycol/Electrolytes (Miralax*) 17 gm PO DAILY PRN PRN Reason: CONSTIPATION Last Admin: 04/16/17 09:22 Dose: 17 gm Senna (Senokot Tab*) 2 tab PO BEDTIME PRN PRN Reason: CONSTIPATION Temp Pulse Resp BP Pulse Ox 98.5 F 72 18 154/64 94 04/16/17 05:20 04/16/17 05:20 04/16/17 09:23 04/16/17 05:20 04/16/17 09:41 PE: GEN: No acute distress. Alert and appropriate. Lungs: clear bilaterally. CV: regular rate and rhythm Abdomen: + bowel sounds. soft, non-tender, non-distended. Ext: no edema. dressing intact. Laboratory Results - last 24 hr 04/16/17 04/16/17 04/16/17 05:51 05:51 05:51 WBC 9.5 RBC 3.77 L Hgb 10.7 L Hct 32 L MCV 84 MCH 28 MCHC 34 RDW 14 Plt Count 170 MPV 7 L Neut % (Auto) 77.9 Lymph % (Auto) 11.6 L [place] % (Auto) 8.5 Eos % (Auto) 1.4 Baso % (Auto) 0.6 Absolute Neuts (auto) 7.4 Absolute Lymphs (auto) 1.1 Absolute Monos (auto) 0.8 Absolute Eos (auto) 0.1 Absolute Basos (auto) 0.1 Absolute Nucleated RBC 0 Nucleated RBC % 0 INR (Anticoag Therapy) 3.67 H Sodium 138 Potassium 3.8 Chloride 104 Carbon Dioxide 28 Anion Gap 6 BUN 10 Creatinine 0.55 Est GFR ( Amer) 135.4 Est GFR (Non-Af Amer) 105.3 BUN/Creatinine Ratio 18.2 Glucose 113 H Calcium 7.8 L Total Bilirubin 0.80 AST 32 ALT 21 Alkaline Phosphatase 43 Total Protein 5.1 L Albumin 2.7 L Globulin 2.4 Albumin/Globulin Ratio 1.1 A/P: 86yo woman s/p right total hip replacement secondary to OA. #THR: WBAT and total hip precautions. f/u with Dr. Ybarra. #Acute post-op anemia: responded well to blood transfusion. f/u cbc tomorrow. #Hypertension: verapamil still on hold. If BP still a bit elevated later today I will restart. It was a little lower yesterday afternoon. #DVT ppx: INR still supratherapeutic. Daily INR and will restart coumadin when it starts to trend down. #continue PT/OT: interdisciplinary plan of care meeting today.
[2017-04-16] MEDS: Clindamycin CAP* 150 MG PO SCH ×3 (11:12→21:36)
--- NOTE | 2017-04-16 12:42 | PMRUTEAM ---
PMRU: Goals Current Status: Nursing: Current Status Physical Therapy: Current Status Bed Mobility Assistance mod A Transfer Moblility Assistance CGA-Beverly Transfer/Bed Mobility Rolling Walker Recommended Devices Ambulation Assistance CGA 30ft Ambulation Assistive Devices Rolling Walker Stairs Assistance not tested Stairs Recommended Devices Straight Cane,One Rail Number of Stairs 2 Occupational Therapy: Current Status Upper Body Dressing Supervision Lower Body Dressing Mod Assist Bathing Min Assist Toileting Contact Guard Assist Toilet Transfer Contact Guard Assist Eating Independent Social Work: Current Status Discharge Plan return home with home care svs and family support Potential for Family Training pt's family is involved and supportive Anticipated Discharge Home Destination Discharge With home care svs and family support Goals: Physical Therapy: Initial Goals Bed Mobility Assistance Independent Transfer Mobility Assistance Independent Transfer/Bed Mobility Rolling Walker Recommended Devices Ambulation Independent Ambulation Recommended Devices Rolling Walker Ambulation Distance 150 Stairs Assistance Independent Stair Recommended Devices Two Rails Number of Stairs 5 Occupational Therapy: Initial Goals Goals to be Completed in (Days 7 ) Upper Body Bathing Routine Independent Lower Body Bathing Routine Modified Independent with Upper Body Dressing Routine Independent Lower Body Dressing Routine Modified Independent with Toilet Hygeine and Clothing Modified Independent with Management Routine Toilet Transfer Routine Modified Independent with Step-In Shower Transfer Supervision/Set Up Routine Tub Transfer Routine Supervision/Set Up Functional Transfers for ADL Modified Independent with Grooming Routine Independent Feeding Routine Independent Light Housekeeping Tasks Independent Social Work: Goals Discharge Plan return home with home care svs and family support Potential for Family Training pt's family is involved and supportive Anticipated Discharge Home Destination Discharge With home care svs and family support Care Plan: Care Plan ADL's - Improve/Maintain Start: 04/16/17 11:34 Freq: DAILY Status: Active Target: Activity Type Activity Date Activity User E-Sign Co-Sign Detail Recorded Client Recorded Date Recorded By Document 04/16/17 11:34 [id number] 04/16/17 11:35 [id number] 04/16/17 11:34 [facility] Outcome: ADL's/ADL Transfers Orders/Interventions Occupational Therapy Evaluation & Treatment Communication Tool in Patient Room Patient to receive OT 5x/wk for 60-120 Therex min/day Self Care Management Group Therapy UE/LE ADL's with Assist Yes: mod I ADL Transfers with Assist Yes: mod I Toileting: Transfers,Clothing Management Yes: mod I ,Hygeine w/Assist Progression Toward Outcome/Goals Progressing Outcome/Goals Met Post-op delirium seems to be resolving from acute evaluation. AE education initiated with good outcomes. Mobility- Improve/Maintain Start: 04/16/17 12:24 Freq: DAILY Status: Active Target: Activity Type Activity Date Activity User E-Sign Co-Sign Detail Recorded Client Recorded Date Recorded By Document 04/16/17 12:24 [id number] 04/16/17 12:26 [id number] 04/16/17 12:24 [facility] Outcome: Mobility Physical Therapy Evaluation and Yes Treatment Activity OOB with Assistance Yes WBAT Yes Device Yes Assistance Yes Patient to be seen 5x/wk for 60-120 min/ Therex day for: Mobility Training Gait Training Balance Outcome/Goals Maintain/ Achieve Baseline Mobility Status Improve Mobility Status Demonstrates Proper Use of Assistive Devices Free from Complications of Immobility Bed Mobility Yes: independent Transfers Yes: independent with rolling walker. Gait x ft Yes: independent with rolling walker 150' Up/Down Stairs Yes: independent up/ down 5 stairs with 2 rails. Medicine Note: Length of Stay: [1 week] Anticipated Discharge Destination: Home Tentative Discharge Date: [04/23/17] Discharged to: [home]
[2017-04-16] MEDS: Atorvastatin* 10 MG TAB PO SCH (17:25)
[2017-04-17] MEDS: oxyCODONE/Acetamin 5/325 MG* TAB PO PRN ×4 (05:04→18:54)
[2017-04-17] MEDS: Omeprazole CAP* 20 MG PO SCH (06:01)
[2017-04-17 06:44] LABS: Hematocrit 32 % (35-47); Hemoglobin 10.7 g/dl (12.0-16.0); Mean Corpuscular HGB Conc 33 g/dl (31-36); Mean Corpuscular Hemoglobin 28 pg (27-31); Mean Corpuscular Volume 84 fL (80-97); Mean Platelet Volume 7 um3 (7.4-10.4); Red Blood Count 3.84 10^6/ul (4.0-5.4); Red Cell Distribution Width 14 % (10.5-15); White Blood Count 7.9 10^3/ul (3.5-10.8)
[2017-04-17] MEDS: Polyethylene Glycol 3350* 17 GM PACKET PO PRN (08:12)
[2017-04-17] MEDS: Clindamycin CAP* 150 MG PO SCH ×3 (08:14→20:25)
[2017-04-17] MEDS: Docusate CAP* 100 MG PO SCH ×2 (08:14→20:25)
[2017-04-17] MEDS: FLUoxetine CAP* 20 MG PO SCH (08:14)
[2017-04-17] MEDS: Verapamil SR TAB* 240 MG PO SCH (09:43)
--- NOTE | 2017-04-17 10:59 | PN ---
Progress Note - Progress Note Date of Service: 04/17/17 Note: Patient visited. Nursing and therapy notes reviewed. No chest pain, shortness of breath or abdominal pain. No BM yet, but feels she may need to go soon. Temp Pulse Resp BP Pulse Ox 98.3 F 70 18 170/69 94 04/17/17 06:37 04/17/17 06:37 04/17/17 09:42 04/17/17 06:37 04/17/17 06:37 PE: GEN: No acute distress. Alert and appropriate. Lungs: clear bilaterally. CV: regular rate and rhythm Abdomen: + bowel sounds. soft, non-tender, non-distended. Ext: no edema. Skin: Right hip incision glued and intact. Laboratory Results - last 24 hr 04/17/17 04/17/17 06:36 06:36 WBC 7.9 RBC 3.84 L Hgb 10.7 L Hct 32 L MCV 84 MCH 28 MCHC 33 RDW 14 Plt Count 217 MPV 7 L Neut % (Auto) 76.8 Lymph % (Auto) 12.5 L [place] % (Auto) 8.1 Eos % (Auto) 2.1 Baso % (Auto) 0.5 Absolute Neuts (auto) 6.1 Absolute Lymphs (auto) 1.0 Absolute Monos (auto) 0.6 Absolute Eos (auto) 0.2 Absolute Basos (auto) 0 Absolute Nucleated RBC 0 Nucleated RBC % 0 INR (Anticoag Therapy) 3.94 H A/P: 86yo woman s/p right total hip replacement secondary to OA. #THR: WBAT and total hip precautions. f/u with Dr. Ybarra. #Acute post-op anemia: responded well to blood transfusion. H/H is stable. #Hypertension: restart verapamil today. #DVT ppx: INR still supratherapeutic. Daily INR and will restart coumadin when it starts to trend down. #continue PT/OT #Advanced directives: son is HCP. DNR. #Estimated discharge 04/23/17.
[2017-04-17] MEDS: Atorvastatin* 10 MG TAB PO SCH (17:21)
[2017-04-18] MEDS: oxyCODONE/Acetamin 5/325 MG* TAB PO PRN ×4 (03:24→18:36)
[2017-04-18] MEDS: Omeprazole CAP* 20 MG PO SCH (06:11)
[2017-04-18] MEDS: Clindamycin CAP* 150 MG PO SCH ×3 (08:30→20:24)
[2017-04-18] MEDS: FLUoxetine CAP* 20 MG PO SCH (08:30)
[2017-04-18] MEDS: Verapamil SR TAB* 240 MG PO SCH (08:30)
[2017-04-18] MEDS: Docusate CAP* 100 MG PO SCH ×2 (08:30→20:24)
--- NOTE | 2017-04-18 10:17 | PN ---
Progress Note - Progress Note Date of Service: 04/18/17 Note: Patient visited. Nursing notes reviewed. No new concerns. +BM. Not eating much. Temp Pulse Resp BP Pulse Ox 99.8 F 83 18 152/65 97 04/18/17 06:10 04/18/17 06:10 04/18/17 08:29 04/18/17 06:10 04/18/17 06:10 PE: GEN: No acute distress. Alert and appropriate. Lungs: clear bilaterally. CV: regular rate and rhythm Abdomen: + bowel sounds. soft, non-tender, non-distended. Ext: no edema. Skin: Right hip incision glued and intact. Laboratory Results - last 24 hr 04/18/17 07:02 INR (Anticoag Therapy) 4.48 H A/P: 86yo woman s/p right total hip replacement secondary to OA. #THR: WBAT and total hip precautions. f/u with Dr. Ybarra. #Acute post-op anemia: responded well to blood transfusion. H/H is stable as on 04/17. f/u tomorrow given supratherapeutic INR. #Poor dentition: On clindamycin 300mt tid until 04/[address] Ybarra. Clinda may contribute to high INR. #Hypertension: verapamil. #DVT ppx: INR still supratherapeutic. Daily INR and will restart coumadin at a low dose when it starts to trend down. If higher tomorrow, may need Vit K. I told her to have salad today for lunch and dinner. Nursing ordered. #continue PT/OT #Advanced directives: son is HCP. DNR. #Estimated discharge 04/23/17.
[2017-04-18] MEDS: Atorvastatin* 10 MG TAB PO SCH (17:18)
[2017-04-19] MEDS: oxyCODONE/Acetamin 5/325 MG* TAB PO PRN ×5 (01:44→18:11)
[2017-04-19] MEDS: Omeprazole CAP* 20 MG PO SCH (06:00)
[2017-04-19 06:36] LABS: Hematocrit 33 % (35-47); Hemoglobin 10.9 g/dl (12.0-16.0)
[2017-04-19] MEDS: Docusate CAP* 100 MG PO SCH ×2 (08:28→21:13)
[2017-04-19] MEDS: Clindamycin CAP* 150 MG PO SCH ×3 (08:29→21:13)
[2017-04-19] MEDS: FLUoxetine CAP* 20 MG PO SCH (08:29)
[2017-04-19] MEDS: Verapamil SR TAB* 240 MG PO SCH (08:29)
--- NOTE | 2017-04-19 16:38 | PN ---
Progress Note - Progress Note Date of Service: 04/19/17 Note: Alana was visited. Therapy notes read and reviewed. She is doing well with therapy. Pain well controlled. She had a bowel movement today. INR has begun to go down. Will restart Coumadin. Current Medications Acetaminophen (Tylenol Tab*) 650 mg PO Q4H PRN PRN Reason: FEVER > 101 Al Hydrox/Mg Hydrox/Simethicone (Maalox Plus*) 30 ml PO Q6H PRN PRN Reason: INDIGESTION Alprazolam (Xanax Tab*) 0.25 mg PO TID PRN PRN Reason: ANXIETY Atorvastatin Calcium (Lipitor*) 10 mg PO QPM [facility] Last Admin: 04/18/17 17:18 Dose: 10 mg Bisacodyl (Dulcolax Supp*) 10 mg [place] DAILY PRN PRN Reason: CONSTIPATION Clindamycin HCl (Cleocin Cap*) 300 mg PO TID [facility] Stop: 04/22/17 23:59 Last Admin: 04/19/17 13:35 Dose: 300 mg Docusate Sodium (Colace Cap*) 100 mg PO BID [facility] Last Admin: 04/19/17 08:28 Dose: Not Given Fluoxetine HCl (Prozac Cap*) 20 mg PO DAILY [facility] Last Admin: 04/19/17 08:29 Dose: 20 mg Magnesium Hydroxide (Milk Of Magnstefani Liq*) 30 ml PO Q6H PRN PRN Reason: CONSTIPATION Omeprazole (Prilosec Cap*) 20 mg PO DAILY@0600 [facility] Last Admin: 04/19/17 06:00 Dose: 20 mg Oxycodone/Acetaminophen (Percocet 5/325 Tab*) 1 tab PO Q4H PRN PRN Reason: PAIN Oxycodone/Acetaminophen (Percocet 5/325 Tab*) 2 tab PO Q4H PRN PRN Reason: PAIN Last Admin: 04/19/17 13:36 Dose: 2 tab Polyethylene Glycol/Electrolytes (Miralax*) 17 gm PO DAILY PRN PRN Reason: CONSTIPATION Last Admin: 04/17/17 08:12 Dose: 17 gm Senna (Senokot Tab*) 2 tab PO BEDTIME PRN PRN Reason: CONSTIPATION Verapamil HCl (Calan Sr Tab*) 240 mg PO DAILY [facility] Last Admin: 04/19/17 08:29 Dose: 240 mg Warfarin Sodium (Coumadin Tab(*)) 1 mg PO ONCE@1700 ONE PRN Reason: Protocol Stop: 04/19/17 17:01 Laboratory Results - last 24 hr 04/19/17 04/19/17 06:22 06:22 Hgb 10.9 L Hct 33 L INR (Anticoag Therapy) 3.46 H Vital Signs Temp Pulse Resp BP Pulse Ox 97.1 F 77 18 115/56 97 04/19/17 15:55 04/19/17 15:55 04/19/17 16:03 04/19/17 15:55 04/19/17 15:55 EXAM: LUNGS: CTA b/l HEART: Reg rhythm ABDOMEN: Soft, +BS EXTREMITIES: Some RLE edema. ASSESSMENT/PLAN: 1. Right THR: WBAT. PT/OT. 2. Acute Blood Loss Anemia: Hb stable 3. Hypertension: On Calan, 240 mg 4. DVT Prophylaxis: restart Coumadin 5. Dentition: on clindamycin 6. Depression: fluoxetine 7. Code Status: DNR.
[2017-04-19] MEDS: Atorvastatin* 10 MG TAB PO SCH (16:55)
[2017-04-19] MEDS ORDERED: Warfarin TAB(*) 1 MG PO ONE (17:00)
[2017-04-20] MEDS: oxyCODONE/Acetamin 5/325 MG* TAB PO PRN ×5 (00:32→21:34)
[2017-04-20] MEDS: Omeprazole CAP* 20 MG PO SCH (06:03)
[2017-04-20] MEDS: Clindamycin CAP* 150 MG PO SCH ×3 (08:23→20:10)
[2017-04-20] MEDS: FLUoxetine CAP* 20 MG PO SCH (08:24)
[2017-04-20] MEDS: Docusate CAP* 100 MG PO SCH ×2 (08:24→20:11)
[2017-04-20] MEDS: Verapamil SR TAB* 240 MG PO SCH (08:24)
--- NOTE | 2017-04-20 12:22 | PMRUTEAM ---
PMRU: Goals Current Status: Nursing: Current Status Skin Deviations [Right Hip] Incision Skin Deviation Description [ SHELLEY Right Hip] Bladder Current Status continent Bowel Current Status continent, taking bowel meds as prescribed, Last BM 04/19 Nutrition Current Status adequate Medication Current Status takes meds as prescribed, 2 tabs Percocet for pain management Physical Therapy: Current Status Bed Mobility Assistance Min Assist,Mod Assist Transfer Moblility Assistance Supervision Transfer/Bed Mobility Rolling Walker Recommended Devices Ambulation Assistance Supervision Ambulation Assistive Devices Rolling Walker Number of Feet Patient 130 Ambulated Ambulation Comment Antalgic short step reciiprocal type gait pattern Stairs Assistance Supervision Stairs Recommended Devices Two Rails Number of Stairs 5 x 1 Occupational Therapy: Current Status Upper Body Dressing Independent,Supervision Lower Body Dressing Ind with Adaptive Equip,Supervision Bathing Ind with Adaptive Equip,Supervision Toileting Ind with Adaptive Equip,Supervision Toilet Transfer Ind with Adaptive Equip,Supervision Shower Transfer Supervision Eating Independent Rec Therapy: Current Status Summary of Assessment and RT assessment complete and pt. is aware of RT Clinical Impression services. Pt. is very social and engaged during leisure visits. Treatment Goals Pt. will engage in leisure activities while on the unit. Treatment Plan Provide RT services and encourage involvement. Social Work: Current Status Discharge Plan Return home with home care svs and family support Potential for Family Training pt's family is involved and supportive Anticipated Discharge Home Destination Discharge With home care svs and family support Nutrition: Current Status Monitoring pt counseled 04/16 re: Coumadin/vit K interaction. INR remains elevated. PO intake has been suboptimal for post-op healing. c/o some nausea after taking meds, so staff encouraging to take w/ food. Had BMs 04/18 and 04/19. Goals: Physical Therapy: Initial Goals Bed Mobility Assistance Independent Transfer Mobility Assistance Independent Transfer/Bed Mobility Rolling Walker Recommended Devices Ambulation Independent Ambulation Recommended Devices Rolling Walker Ambulation Distance 150 Stairs Assistance Independent Stair Recommended Devices Two Rails Number of Stairs 5 Physical Therapy: Updated Goals Bed Mobility Assistance Independent Transfer Mobility Assistance Independent Transfer/Bed Mobility Rolling Walker Recommended Devices Ambulation Assistance Independent Ambulation Assistive Devices Rolling Walker Ambulation Distance (ft) 150 Stairs Assistance Independent Stairs Recommended Devices Two Rails Number of Stairs 5 Occupational Therapy: Initial Goals Goals to be Completed in (Days 7 ) Upper Body Bathing Routine Independent Lower Body Bathing Routine Modified Independent with Upper Body Dressing Routine Independent Lower Body Dressing Routine Modified Independent with Toilet Hygeine and Clothing Modified Independent with Management Routine Toilet Transfer Routine Modified Independent with Step-In Shower Transfer Supervision/Set Up Routine Tub Transfer Routine Supervision/Set Up Functional Transfers for ADL Modified Independent with Grooming Routine Independent Feeding Routine Independent Light Housekeeping Tasks Independent Nursing: Goals Bladder Goal independent Bowel Goal independent Nutrition Goal 100% of all meals Medication Goal independent Nutrition: Goals Intervention Goals 1. adequate po intake to support post-op healing and lean body mass without add'l wt gain 2. regulation of post-op bowel pattern without c/ o constipation (or diarrhea) 3. adherence to Coumadin/vit K intake guidelines as instructed; pt will have any related questions addressed prior to d/c Social Work: Goals Discharge Plan Return home with home care svs and family support Potential for Family Training pt's family is involved and supportive Anticipated Discharge Home Destination Discharge With home care svs and family support Care Plan: Care Plan ADL's - Improve/Maintain Start: 04/16/17 11:34 Freq: QSHIFT Status: Active Target: Activity Type Activity Date Activity User E-Sign Co-Sign Detail Recorded Client Recorded Date Recorded By Document 04/20/17 11:34 [id number] 04/20/17 11:36 [id number] 04/20/17 11:34 PMRU Outcome: ADL's/ADL Transfers Orders/Interventions Occupational Therapy Evaluation & Treatment Communication Tool in Patient Room Patient to receive OT 5x/wk for 60-120 Therex min/day Self Care Management Group Therapy UE/LE ADL's with Assist Yes: mod I ADL Transfers with Assist Yes: mod I Toileting: Transfers,Clothing Management Yes: mod I ,Hygeine w/Assist Progression Toward Outcome/Goals Progressing Outcome/Goals Met Pt is at a S/ mod I level with all ADLs and ADL transfers. Ready for d/c within 24 hours from this manual writer's standpoint. Communication-Improve/Maintain Start: 04/16/17 19:46 Freq: QSHIFT Status: Active Target: Activity Type Activity Date Activity User E-Sign Co-Sign Detail Recorded Client Recorded Date Recorded By Document 04/20/17 10:22 [id number] 04/20/17 10:23 [id number] 04/20/17 10:22 PMRU Outcome: Communication/Cognitive Status Outcome/Goals Use Comm Tools/ Devices Makes Needs Known Effectively Progression Toward Outcomes/Goals Progressing Outcome/Goals Met Comment using 1-10 pain scale appropriately Coping/Psych-Improve/Maintain Start: 04/16/17 19:46 Freq: QSHIFT Status: Active Target: Activity Type Activity Date Activity User E-Sign Co-Sign Detail Recorded Client Recorded Date Recorded By Document 04/20/17 10:22 [id number] 04/20/17 10:23 [id number] 04/20/17 10:22 PMRU Outcome: Coping/Psychosocial Coping Outcome/Goals Verbalization of Acceptance of Rehab Admit Willingness to Participate in Treatment Plan and Basic Needs Psychosocial Outcome/Goals Maintain/ Improve Emotional Health Other Outcome/Goals depression in the AM Progression Toward Outcome/Goals - Progressing Coping Progression Toward Outcome/Goals - Progressing Psychosocial Education-Improve/Maintain Start: 04/16/17 19:46 Freq: QSHIFT Status: Active Target: Activity Type Activity Date Activity User E-Sign Co-Sign Detail Recorded Client Recorded Date Recorded By Document 04/20/17 10:22 [id number] 04/20/17 10:23 [id number] 04/20/17 10:22 PMRU Outcome: Education Outcome/Goals Demonstrate/ Verbalize Understanding of Written Discharge Instructions Encourage Questions Progression Toward Outcome/Goals Progressing /GI-Improve/Maintain Start: 04/16/17 19:46 Freq: QSHIFT Status: Active Target: Activity Type Activity Date Activity User E-Sign Co-Sign Detail Recorded Client Recorded Date Recorded By Document 04/20/17 10:22 [id number] 04/20/17 10:23 [id number] 04/20/17 10:22 PMRU Outcome: Genitourinary/ Gastrointestinal Genitourinary- Outcome/Goals Maintain/ Achieve Urinary Continence Maintain/ Achieve Adequate Urinary Output Gastrointestinal-Outcome/Goals Maintain/ Achieve Bowel Regularity in Accordance with Pt's Baseline Remain Free of Emesis Prevent Constipation Laxatives as Ordered Progression Toward Outcome/Goals - Progressing Progression Toward Outcome/Goals - GI Progressing Outcome/Goals Met Comment pt up to BR Mobility- Improve/Maintain Start: 04/16/17 12:24 Freq: QSHIFT Status: Active Target: Activity Type Activity Date Activity User E-Sign Co-Sign Detail Recorded Client Recorded Date Recorded By Document 04/19/17 17:00 [id number] 04/19/17 17:00 [id number] 04/19/17 17:00 PMRU Outcome: Mobility Physical Therapy Evaluation and Yes Treatment Activity OOB with Assistance Yes WBAT Yes Device Yes Assistance Yes Patient to be seen 5x/wk for 60-120 min/ Therex day for: Mobility Training Gait Training Balance Outcome/Goals Maintain/ Achieve Baseline Mobility Status Improve Mobility Status Demonstrates Proper Use of Assistive Devices Free from Complications of Immobility Progression Toward Outcome/Goals Progressing Bed Mobility Yes: independent Transfers Yes: independent with rolling walker. Gait x ft Yes: independent with rolling walker 150' Up/Down Stairs Yes: independent up/ down 5 stairs with 2 rails. Pain/Comfort- Improve/Maintain Start: 04/16/17 19:46 Freq: QSHIFT Status: Active Target: Activity Type Activity Date Activity User E-Sign Co-Sign Detail Recorded Client Recorded Date Recorded By Document 04/20/17 10:22 [id number] 04/20/17 10:23 [id number] 04/20/17 10:22 PMRU Outcome: Pain/Comfort Outcome/Goals Demonstrates Knowledge and Use of Available Comfort Measures Achieves Acceptable Comfort/Pain Level as Determined by Patient/Condit Maintain Comfort Level Allowing Patient to Fully Participate in Rehab Progression Toward Outcome/Goals Progressing Outcome/Goals Met Comment 2 Percocet given, pain level remains 8 /10 upon reassessment, participating in therapy Safety- Improve/Maintain Start: 04/16/17 19:46 Freq: QSHIFT Status: Active Target: Activity Type Activity Date Activity User E-Sign Co-Sign Detail Recorded Client Recorded Date Recorded By Document 04/20/17 10:22 [id number] [email or web address] 04/20/17 10:23 [id number] 04/20/17 10:22 PMRU Outcome: Safety Outcome/Goals Remain Free of Injury or Harm Cooperates with Safety Measures for Least Restrictive Environment Prevent Falls/ Injury Progression Toward Outcome/Goals Progressing Outcome/Goals Met Comment pt reduced from high risk to medium risk Skin- Improve/Maintain Start: 04/16/17 19:46 Freq: QSHIFT Status: Active Target: Activity Type Activity Date Activity User E-Sign Co-Sign Detail Recorded Client Recorded Date Recorded By Document 04/20/17 10:22 [id number] 04/20/17 10:23 [id number] 04/20/17 10:22 PMRU Outcome: Skin Skin Risk Level Medium Skin Orders Turn/Position q2hr While in Bed Outcome/Goals Maintain/ Improve Skin Intergrity Surgical Incisions Healing Progression Toward Outcome/Goals Progressing Medicine Note: Length of Stay: 1 day Anticipated Discharge Destination: Home Tentative Discharge Date: 04/21/17 Discharged to: Home
--- NOTE | 2017-04-20 16:47 | PN ---
Progress Note - Progress Note Date of Service: 04/20/17 Note: Alana was visited. She was discussed in interdisciplinary team rounds. She has made remarkable improvements and will be ready for discharge tomorrow. She is clearer and moving very well. Her INR kwaku again after 1 mg of Coumadin. Will hold today and check INR in am. Current Medications Acetaminophen (Tylenol Tab*) 650 mg PO Q4H PRN PRN Reason: FEVER > 101 Al Hydrox/Mg Hydrox/Simethicone (Maalox Plus*) 30 ml PO Q6H PRN PRN Reason: INDIGESTION Alprazolam (Xanax Tab*) 0.25 mg PO TID PRN PRN Reason: ANXIETY Atorvastatin Calcium (Lipitor*) 10 mg PO QPM [facility] Last Admin: 04/19/17 16:55 Dose: 10 mg Bisacodyl (Dulcolax Supp*) 10 mg [place] DAILY PRN PRN Reason: CONSTIPATION Clindamycin HCl (Cleocin Cap*) 300 mg PO TID [facility] Stop: 04/22/17 23:59 Last Admin: 04/20/17 14:02 Dose: 300 mg Docusate Sodium (Colace Cap*) 100 mg PO BID [facility] Last Admin: 04/20/17 08:24 Dose: 100 mg Fluoxetine HCl (Prozac Cap*) 20 mg PO DAILY [facility] Last Admin: 04/20/17 08:24 Dose: 20 mg Magnesium Hydroxide (Milk Of Magnstefani Liq*) 30 ml PO Q6H PRN PRN Reason: CONSTIPATION Omeprazole (Prilosec Cap*) 20 mg PO DAILY@0600 [facility] Last Admin: 04/20/17 06:03 Dose: 20 mg Oxycodone/Acetaminophen (Percocet 5/325 Tab*) 1 tab PO Q4H PRN PRN Reason: PAIN Oxycodone/Acetaminophen (Percocet 5/325 Tab*) 2 tab PO Q4H PRN PRN Reason: PAIN Last Admin: 04/20/17 12:30 Dose: 2 tab Polyethylene Glycol/Electrolytes (Miralax*) 17 gm PO DAILY PRN PRN Reason: CONSTIPATION Last Admin: 04/17/17 08:12 Dose: 17 gm Senna (Senokot Tab*) 2 tab PO BEDTIME PRN PRN Reason: CONSTIPATION Verapamil HCl (Calan Sr Tab*) 240 mg PO DAILY [facility] Last Admin: 04/20/17 08:24 Dose: 240 mg Laboratory Results - last 24 hr 04/20/17 07:43 INR (Anticoag Therapy) 3.49 H Vital Signs Temp Pulse Resp BP Pulse Ox 98.4 F 74 18 108/52 97 04/20/17 15:39 04/20/17 15:39 04/20/17 16:25 04/20/17 15:39 04/20/17 16:25 EXAM: LUNGS: CTA b/l HEART: Reg rhythm ABDOMEN: Soft, +BS EXTREMITIES: Some RLE edema. ASSESSMENT/PLAN: 1. Right THR: WBAT. PT/OT. Probable d/c in am 2. Acute Blood Loss Anemia: Hb stable 3. Hypertension: On Calan, 240 mg 4. DVT Prophylaxis: on Coumadin, hold tonight, check INR in am 5. Dentition: on clindamycin 6. Depression: fluoxetine 7. Code Status: DNR.
[2017-04-20] MEDS: Atorvastatin* 10 MG TAB PO SCH (17:28)
[2017-04-21] MEDS: Omeprazole CAP* 20 MG PO SCH (05:52)
[2017-04-21] MEDS: oxyCODONE/Acetamin 5/325 MG* TAB PO PRN ×3 (05:52→15:32)
[2017-04-21] MEDS: Docusate CAP* 100 MG PO SCH (08:30)
[2017-04-21] MEDS: Verapamil SR TAB* 240 MG PO SCH (08:30)
[2017-04-21] MEDS: FLUoxetine CAP* 20 MG PO SCH (08:30)
[2017-04-21] MEDS: Clindamycin CAP* 150 MG PO SCH ×2 (08:30→13:16)
[2017-04-21 15:29] VITALS: BP 121/57
[2017-04-22] MEDS ORDERED: Warfarin TAB(*) 1 MG PO SCH (17:00)
--- NOTE | 2017-04-22 17:31 | DS ---
CC: Dr. Cherie Ybarra; Dr. Magalie Escobar DISCHARGE SUMMARY: DATE OF ADMISSION: 04/15/17 DATE OF DISCHARGE: 04/21/17 DISCHARGE DIAGNOSES: 1. Right total hip replacement. 2. Acute blood loss anemia. 3. Hypertension. 4. Anxiety. 5. Depression. HISTORY OF PRESENT ILLNESS AND HOSPITAL COURSE: For complete history of the events leading up to [facility] rehab stay, please see the history and physical dictated by Dr. Ester Quiroz on 04/15/17. Bereket ring on the rehab unit, the patient was largely medically stable. She was maintained on Coumadin for DVT prophylaxis. Her INR was supratherapeutic and her Coumadin was held for most of her rehab stay. It was felt that the clindamycin she was on for poor dentition was likely increasing her INR. Othe rwise, the patient was stable from a medical point of view. The patient's wound was healing well. She was seen by both Physical and Occupational Therapy and made good gains with both disciplines. W ith physical therapy at the time of admission, the patient required contact guard to min assist to d o a transfer. She was able to ambulate 30 feet with contact guard and a rolling walker. With occup ational therapy, at the time of admission, the patient required mod assist for lower body dressing, min assist for bathing, toileting with contact guard, and toilet transfers with contact guard. By t he time of discharge, she was independent with her activities of daily living, independent in toilet ing and toilet transfers, independent in transfers, and independent ambulating 150 feet with a 2-whe eled walker and going up and down 5 steps. The patient was discharged home, 04/21/17. DISCHARGE DIET: Regular. DISCHARGE MEDICATIONS: 1. Xanax 0.25 mg 3 times as needed. 2. Lipitor 10 mg in the evening. 3. Omeprazole 20 mg daily. 4. MiraLAX 17 g every day as needed. 5. Calan SR 240 mg daily. 6. Percocet 1 to 2 tablets every 4 hours as needed. 7. Prozac 20 mg daily. 8. Coumadin 1 mg on Mondays and beginning 04/22/17. SERVICES AFTER DISCHARGE: Through the visiting nurse services, the patient will have home nursing, home physical therapy, home health aide. FOLLOWUP: She is going to follow up with her orthopedic surgeon, Dr. Cherie Ybarra, in 1 week for lopes ture removal. She will also follow up with her primary care doctor, Dr. Magalie Escobar. [id number]/[facility] #: [id number]
== END 2017-04-21 16:00 | disposition home or self-care (01) | DRG 560 ==
LOC: PMRU 13:00
PROVIDERS: ADMIT Physical Medicine & Rehabilitation; ATTEND Physical Medicine & Rehabilitation
PROC: 30253N1 (ICD-10-PCS; principal; 2017-04-15)
PROC: F07Z5ZZ Bed Mobility Treatment (ICD-10-PCS; 2017-04-15)
PROC: F07Z9ZZ Gait Training/Functional Ambulation Treatment (ICD-10-PCS; 2017-04-15)
PROC: F07Z8ZZ Transfer Training Treatment (ICD-10-PCS; 2017-04-15)
PROC: F08Z0ZZ Bathing/Showering Techniques Treatment (ICD-10-PCS; 2017-04-15)
PROC: F08Z1ZZ Dressing Techniques Treatment (ICD-10-PCS; 2017-04-15)
PROC: F08Z3ZZ Feeding/Eating Treatment (ICD-10-PCS; 2017-04-15)
DX: Z47.1 Aftercare following joint replacement surgery (principal); D62 Acute posthemorrhagic anemia; Z96.641 Presence of right artificial hip joint; I10 Essential (primary) hypertension; F41.8 Other specified anxiety disorders; E78.5 Hyperlipidemia, unspecified; Z85.820 Personal history of malignant melanoma of skin; Z85.42 Personal history of malignant neoplasm of other parts of uterus; Z85.038 Personal history of other malignant neoplasm of large intestine; Z79.01 Long term (current) use of anticoagulants; Z79.1 Long term (current) use of non-steroidal anti-inflammatories (NSAID); Z79.899 Other long term (current) drug therapy; Z88.0 Allergy status to penicillin; Z88.8 Allergy status to other drugs, medicaments and biological substances; Z82.5 Family history of asthma and other chronic lower respiratory diseases
CPT/HCPCS: 36415; 80053; 85014; 85018; 85025; 85610; A9270-GY

== ENCOUNTER 2017-04-25 12:24 | Emergency (ER) | payer MEDICARE, OTHER ==
--- NOTE | 2017-04-25 13:53 | RAD ---
Indication: LEFT hip pain post fall one week ago. On Coumadin. Comparison: April 13, 2017 radiographs. May 21, 2011 CT. Technique: Multidetector CT pelvis without contrast. Multiplanar reformation with bone algorithm. Report: 4.9 cm AP by 4.2 cm transverse by 4.6 cm cephalocaudal postoperative seroma or hematoma posterior to the RIGHT hip with mild mass effect on the gluteus chino muscle. No additional loculated soft tissue plane fluid collections evident. Negative for fracture within the [id number]. Complete joint space loss at the superior LEFT hip with associated severe osteophytosis, subchondral sclerosis, and subchondral cystic change. Advanced lumbar sacral spine degenerative spondylosis and facet joint osteoarthritis. Colonic diverticulosis without visualized diverticulitis within the [id number]. Partially visualized 1.4 cm water density cyst at the caudal aspect of the liver. Peripheral vascular calcifications. Anterior subcutaneous edema. 1. Normally located LEFT hip without evidence for fracture or soft tissue hematoma about the LEFT hip. 2. 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 3. 4.9 cm AP by 4.2 cm transverse by 4.6 cm cephalocaudal postoperative seroma or hematoma posterior to the prosthetic RIGHT hip with mild mass effect on the gluteus chino muscle.
--- NOTE | 2017-04-25 14:04 | ED ---
Lower Extremity - HPI Summary HPI Summary: 86 female presents to ED with complaints of left hip soreness after falling yesterday. Patient states she just had a RIGHT hip replacement on 04/13/17 without complication. States she has since been using a walker and accidentally had a mechanical fall. Patient landed on left hip. States she has still been able to bear weight and walk using walker without much pain in left hip. Was recommended that she gets an xray to rule out hematoma and fracture. She is taking Coumadin, started two days ago at home, post-surgery for prophylaxis. No other complaints or injuries. Did not hit head. No PMHx. No current pain other than post surgical pain and edema of right hip/extremity due to recent surgery. - History of Current Complaint Chief Complaint: EDHipPelvisInjury Stated Complaint: FALL/HIP SX 1WK AGO Time Seen by Provider: 04/25/17 13:02 Hx Obtained From: Patient Mechanism Of Injury: Fall From A Standing Position Onset of Pain: Immediate Onset/Duration: Days - 2 Severity Initially: Mild Severity Currently: Mild Pain Intensity: 6 Pain Scale Used: 0-10 Numeric - due to right hip Timing: Constant Location: Is Discrete @ - mainly right hip due to recent surgery, however minimal pain of left hip Character Of Pain: Sharp, Aching Associated Signs And Symptoms: Positive: Swelling - of right hip due to replacement Aggravating Factor(s): Standing, Ambulation Alleviating Factor(s): Rest Able to Bear Weight: Yes - Allergies/Home Medications Allergies/Adverse Reactions: Allergies Allergy/AdvReac Type Severity Reaction Status Date / Time Penicillins Allergy Intermediate Hives Verified 04/13/17 06:54 Cephalosporins Allergy Rash And Verified 04/13/17 06:54 Itching PMH/Surg Hx/FS Hx/Imm Hx Endocrine/Hematology History: Reports: Hx Anticoagulant Therapy - coumadin, began 2 days ago 04/23/17 Cardiovascular History: Reports: Hx Hypertension GI History: Reports: Hx Ulcer - r/t aleve use Musculoskeletal History: Reports: Hx Arthritis - GENERALIZED OSTEO, Hx Bursitis Sensory History: Reports: Hx Cataracts - BILAT, Hx Contacts or Glasses - READING Denies: Hx Hearing Aid Opthamlomology History: Reports: Hx Cataracts - BILAT, Hx Contacts or Glasses - READING Psychiatric History: Reports: Hx Anxiety, Hx Depression - Cancer History Cancer Type, Location and Year: colon cancer 10-12 years ago. uterine cancer 15 -17 years ago - Surgical History Surgery Procedure, Year, and Place: HYSTERECTOMY 2000 [facility] [place]. COLON RESECTION 2006 [facility] [place]. MELANOMA 40 YRS RIGHT HIP. BILAT CATARACT REMOVED 2006 [facility] [place] [facility]. Right hip replacement 04/13/2017 Hx Anesthesia Reactions: No Infectious Disease History: No Infectious Disease History: Denies: Traveled Outside the [place] in Last 30 Days - Family History Known Family History: Positive: None - Social History Alcohol Use: None Substance Use Type: Reports: None Smoking Status (MU): Former Smoker Amount Used/How Often: 1999 Review of Systems Constitutional: Negative Respiratory: Negative Gastrointestinal: Negative Positive: Arthralgia, Myalgia, Edema - right LE/hip due to surgery, not for current visit complaint Neurological: Negative All Other Systems Reviewed And Are Negative: Yes Physical Exam Triage Information Reviewed: Yes Vital Signs On Initial Exam: Initial Vitals Temp Pulse Resp BP Pulse Ox 97.9 F 62 14 116/53 96 04/25/17 12:41 04/25/17 12:41 04/25/17 12:41 04/25/17 12:41 04/25/17 12:41 Vital Signs Reviewed: Yes Appearance: Positive: Well-Appearing, No Pain Distress, Well-Nourished Skin: Positive: Warm, Skin Color Reflects Adequate Perfusion, Dry. Negative: Cold, Cyanosis @ Eyes: Positive: EOMI, KVNG, Conjunctiva Clear ENT: Positive: Hearing grossly normal Neck: Positive: Supple, Nontender Respiratory/Lung Sounds: Positive: Clear to Auscultation, Breath Sounds Present. Negative: Rales, Rhonchi, Wheezes Cardiovascular: Positive: Normal, RRR, Pulses are Symmetrical in both Upper and Lower Extremities - 2+ pedal b/l, Leg Edema Right - post-surgical hip replacement. Negative: Murmur, Rub Musculoskeletal: Positive: Strength/ROM Intact - left LE, Limited @ - right LE, known, Edema Right - LE. Negative: Interruption @, Pain @ - no pain at left hip , Edema Left Neurological: Positive: Normal, Sensory/Motor Intact, Alert, Oriented to Person Place, Time, CN Intact II-III, Reflexes Intact, NV Bundle Intact Distally, Normal Gait - with walker - [place] Coma Scale Best Eye Response: 4 - Spontaneous Best Motor Response: 6 - Obeys Commands Best Verbal Response: 5 - Oriented Coma Scale Total: 15 Diagnostics - Vital Signs Vital Signs Temp Pulse Resp BP Pulse Ox 04/25/17 12:41 97.9 F 62 14 116/53 96 - Laboratory Lab Results: Lab Results 04/25/17 Range/Units 13:41 INR (Anticoag Therapy) 1.21 H (0.89-1.11) APTT 33.2 (26.0-36.3) seconds Lab Statement: Any lab studies that have been ordered have been reviewed, and results considered in the medical decision making process. - CT pelvis wo CT Interpretation: No Acute Changes - 1. Normally located LEFT hip without evidence for fracture or soft tissue hematoma about the LEFT hip. 2. 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 3. 4.9 cm AP by 4.2 cm transverse by 4.6 cm cephalocaudal postoperative seroma or hematoma posterior to the prosthetic RIGHT hip with mild mass effect on the gluteus chino muscle. CT Interpretation Completed By: Radiologist Lower Extremity Course/Dx - Course Course Of Treatment: coumadin level checked and normal for recently starting orally [address] obtained and negative for acute fracture/hematoma of left hip. Some changes of right hip, post surgical, not of concern and same as previously obtained CT a few days ago. No other complaints or injuries. Aware of worsening signs and symptoms. Follow up with PCP/surgeon. Continue already prescribed medication at home for pain. Rest. Elevate. - Diagnoses Differential Diagnosis/HQI/PQRI: Positive: Contusion, Dislocation, Fracture ( Closed), Sprain, Strain, Other - fall Provider Diagnoses: Fall, Hip pain, Status post total hip replacement, right, Anticoagulated on Coumadin Discharge - Discharge Plan Condition: Stable Disposition: HOME Patient Education Materials: Fall Prevention for Older Adults (ED), Hip Pain ( ED) Referrals: Magalie Escobar MD [Primary Care Provider] - Additional Instructions: Continue taking prescribed medication as directed by surgeon. Rest, use walker. Elevate right lower extremity. Follow up with PCP. Any new or worsening symptoms please seek medical attention as discussed.
[2017-04-25 14:32] VITALS: BP 138/74
== END 2017-04-25 14:32 | disposition home or self-care (01) ==
LOC: ED 12:24
DX: J44.9 Chronic obstructive pulmonary disease, unspecified (principal); K20.9 Esophagitis, unspecified; R53.1 Weakness
CPT/HCPCS: 36415; 72192; 85610; 85730; 96365; 96375; 99282